=== PATIENT | male | born 1985 | race Caucasian/White ===

== ENCOUNTER 2018-08-19 18:41 | Emergency (ER) | payer SELFPAY ==
[~2018-08-19] VITALS: Ht 167.6 cm; Wt 100.0 kg
[2018-08-20 02:12] LABS: AMPHET/METH SCREEN,URINE POSITIVE (NEGATIVE); BARBITURATE SCREEN, URINE NEGATIVE (NEGATIVE); BENZODIAZEPINES SCREEN,URINE NEGATIVE (NEGATIVE); CANNABINOID SCREEN,URINE NEGATIVE (NEGATIVE); COCAINE SCREEN,URINE NEGATIVE (NEGATIVE); METHADONE SCREEN, URINE NEGATIVE (NEGATIVE); OPIATE SCREEN,URINE POSITIVE (NEGATIVE)
[2018-08-20 02:13] LABS: PHENCYCLIDINE SCREEN,URINE NEGATIVE (NEGATIVE)
[2018-08-20 03:05] VITALS: BP 117/76
== END 2018-08-20 03:07 | disposition home or self-care (01) ==
LOC: EMS 18:42
DX: F15.10 Other stimulant abuse, uncomplicated (principal); F11.10 Opioid abuse, uncomplicated; F17.210 Nicotine dependence, cigarettes, uncomplicated; Z88.0 Allergy status to penicillin
CPT/HCPCS: 36415; 80307; 99284; G0480; 51701

== ENCOUNTER 2022-11-05 23:52 | Inpatient (IN) | payer MEDICAID, OTHER ==
[~2022-11-05] VITALS: Ht 182.9 cm; Wt 104.5 kg
[2022-11-06] MEDS ORDERED: CLINDAMYCIN HCL 150 MG CAPSULE PO ONE (01:45)
[2022-11-06] MEDS ORDERED: HYDROCODONE/ACETAMINOPHEN 5-325 MG TABLET PO ONE (02:15)
[2022-11-06 03:18] LABS: BASOPHILS % (AUTO) 0.8 % (0.0-2.0); EOSINOPHILS % (AUTO) 2.3 % (1.0-6.0); HEMATOCRIT 42.2 % (41-53); HEMOGLOBIN 14.3 g/dL (13.5-17.5); LYMPHOCYTES # (AUTO) 2.5 K/uL (1.0-4.8); LYMPHOCYTES % (AUTO) 25.1 % (22.0-44.0); MEAN CORPUSCULAR HEMOGLOBIN 30.3 pg (26.0-34.0); MEAN CORPUSCULAR HGB CONC 33.9 G/dL (31.0-37.0); MEAN CORPUSCULAR VOLUME 90 fL (80-100); MONOCYTES # (AUTO) 1.1 K/uL (0.1-1.0); MONOCYTES % (AUTO) 10.8 % (2.0-9.0); PLATELET COUNT (AUTO) 248 K/uL (150-450); RED BLOOD CELL COUNT(AUTO) 4.72 MIL/uL (4.50-5.90); RED CELL DISTRIBUTION WIDTH 13.6 % (11.5-14.5)
[2022-11-06 03:19] LABS: ANION GAP 6 mmol/L (8-16); CARBON DIOXIDE 28 mmol/L (22-29); CHLORIDE 103 mmol/L (98-107); CREATININE 1.02 mg/dL (0.60-1.30); GLOMERULAR FILTR. RATE CALC > 60 mL/min (>60); GLUCOSE,RANDOM 87 mg/dL (70-110); POTASSIUM 4.5 mmol/L (3.5-5.1); SODIUM SERUM 137 mmol/L (136-145); UREA NITROGEN, BLOOD 22 mg/dL (7-18)
[2022-11-06 03:25] LABS: ALANINE AMINOTRANSFERASE 68 U/L (12-78); ALBUMIN 4.3 g/dL (3.4-5.0); ALKALINE PHOSPHATASE 75 U/L (46-116); ASPARTATE AMINOTRANSFERASE 40 U/L (15-37); BILIRUBIN,TOTAL 0.3 mg/dL (0.1-1.0); TOTAL PROTEIN, SERUM 8.3 g/dL (6.4-8.2)
[2022-11-06] MEDS ORDERED: CLINDAMYCIN 600 MG/D5% WATER 50 ML IV ONE (05:15)
[2022-11-06] MEDS ORDERED: PERTUSS(ACELL),DIPH,TET VAC/PF 0.5 ML SYRINGE IM. ONE (07:30)
[2022-11-06] MEDS ORDERED: ONDANSETRON HCL 4 MG/2 ML VIAL IVP ONE (07:30)
[2022-11-06] MEDS ORDERED: HYDROmorphone HCL 2 MG/ML SYRINGE IVP ONE (07:30)
[2022-11-06] MEDS ORDERED: VANCOMYCIN HCL 1.5 GM in DEXTROSE 5%-WATER 250 ML IV ONE (07:30)
[2022-11-06] MEDS ORDERED: SODIUM CHLORIDE 0.9% 2,000 ML IV ONE (07:30)
[2022-11-06] MEDS ORDERED: LORazepam 2 MG/ML VIAL IVP ONE (08:00)
[2022-11-06] MEDS ORDERED: IOHEXOL 350 MG/ML 100 ML VIAL ONE (08:07)
[2022-11-06] MEDS ORDERED: SODIUM CHLORIDE 0.9% 100 ML ONE (08:08)
[2022-11-06] MEDS ORDERED: ONDANSETRON HCL 4 MG/2 ML VIAL IVP PRN (08:15)
[2022-11-06] MEDS ORDERED: MAGNESIUM HYDROXIDE SUSPENSION 30 ML UDCUP PO PRN (08:15)
[2022-11-06] MEDS ORDERED: MORPHINE SULFATE 2 MG/ML SYRINGE IVP PRN (08:15)
[2022-11-06] MEDS ORDERED: OxyCODONE HCL/ACETAMINOPHEN 5-325 MG TABLET PO PRN (08:15)
[2022-11-06] MEDS ORDERED: ACETAMINOPHEN 325 MG TABLET PO PRN (08:15)
[2022-11-06] MEDS: FAMOTIDINE 20 MG TABLET PO SCH (09:14)
[2022-11-06] MEDS: NICOTINE 21 MG/24 HOUR PATCH TD SCH (09:14)
[2022-11-06] MEDS: CLINDAMYCIN 600 MG/D5% WATER 50 ML IV SCH ×2 (12:29→20:05)
[2022-11-06] MEDS ORDERED: INFLUENZA VIRUS VACCINE QVS 2022-23 (6MO+)/PF 60 MCG/0.5 ML SYRINGE IM. ONE (15:00)
[2022-11-06 15:01] VITALS: BP 151/103
[2022-11-06] MEDS ORDERED: SODIUM CHLORIDE 0.9% 500 ML IV ONE (19:56)
[2022-11-06 20:07] VITALS: BP 134/86
[2022-11-06] MEDS ORDERED: HYDROmorphone HCL 2 MG/ML SYRINGE IVP PRN (20:15)
[2022-11-07 04:41] VITALS: BP 141/87
[2022-11-07] MEDS: CLINDAMYCIN 600 MG/D5% WATER 50 ML IV SCH ×2 (05:01→11:59)
[2022-11-07 07:59] VITALS: BP 125/89
[2022-11-07] MEDS: FAMOTIDINE 20 MG TABLET PO SCH (08:32)
[2022-11-07] MEDS: NICOTINE 21 MG/24 HOUR PATCH TD SCH (08:32)
[2022-11-07] MEDS ORDERED: CLIN300C58 PO (10:43)
[2022-11-07 11:48] LABS: BASOPHILS % (AUTO) 0.9 % (0.0-2.0); EOSINOPHILS % (AUTO) 3.3 % (1.0-6.0); HEMATOCRIT 40.8 % (41-53); HEMOGLOBIN 13.7 g/dL (13.5-17.5); LYMPHOCYTES # (AUTO) 1.6 K/uL (1.0-4.8); LYMPHOCYTES % (AUTO) 20.6 % (22.0-44.0); MEAN CORPUSCULAR HEMOGLOBIN 29.9 pg (26.0-34.0); MEAN CORPUSCULAR HGB CONC 33.6 G/dL (31.0-37.0); MEAN CORPUSCULAR VOLUME 89 fL (80-100); MONOCYTES # (AUTO) 0.7 K/uL (0.1-1.0); MONOCYTES % (AUTO) 9.6 % (2.0-9.0); NEUTROPHILS # (AUTO) 5.1 K/uL (1.8-7.7); NEUTROPHILS % (AUTO) 65.6 % (40.0-70.0); PLATELET COUNT (AUTO) 226 K/uL (150-450); RED BLOOD CELL COUNT(AUTO) 4.59 MIL/uL (4.50-5.90); RED CELL DISTRIBUTION WIDTH 13.1 % (11.5-14.5)
== END 2022-11-07 13:38 | disposition home or self-care (01) | DRG 351 ==
LOC: EMS 23:53 → AHU 11-06 09:03 → 6S 11-06 14:05
PROVIDERS: ADMIT Internal Medicine; ATTEND Internal Medicine
PROC: 3E0234Z Introduction of Serum, Toxoid and Vaccine into Muscle, Percutaneous Approach (ICD-10-PCS; principal; 2022-11-06)
DX: M65.9 Synovitis and tenosynovitis, unspecified (principal); E66.9 Obesity, unspecified; L03.114 Cellulitis of left upper limb; F17.210 Nicotine dependence, cigarettes, uncomplicated; Z88.0 Allergy status to penicillin; Z88.1 Allergy status to other antibiotic agents; Z23 Encounter for immunization; Z68.31 Body mass index [BMI] 31.0-31.9, adult
CPT/HCPCS: 73200; 80053; 85025; 87040; 87077; 87205; 90715; 99291; J1170; J2060; J2270; J2405; J3370; J3490; J7030; J7040; J7050; J7060; Q9967

== ENCOUNTER 2023-01-10 10:24 | Emergency (ER) | payer OTHER ==
[~2023-01-10] VITALS: Ht 180.3 cm; Wt 109.1 kg
[~2023-01-10 10:24] MED LIST: CLIN300C58 PO
[2023-01-10 13:44] LABS: COVID AG,FIA SOURCE NASOPHARYNGEAL
[2023-01-10 14:51] LABS: BASOPHILS % (AUTO) 1.2 % (0.0-2.0); EOSINOPHILS % (AUTO) 3.7 % (1.0-6.0); HEMATOCRIT 38.8 % (41-53); HEMOGLOBIN 12.9 g/dL (13.5-17.5); LYMPHOCYTES # (AUTO) 2.4 K/uL (1.0-4.8); LYMPHOCYTES % (AUTO) 33.1 % (22.0-44.0); MEAN CORPUSCULAR HEMOGLOBIN 30.1 pg (26.0-34.0); MEAN CORPUSCULAR HGB CONC 33.3 G/dL (31.0-37.0); MEAN CORPUSCULAR VOLUME 90 fL (80-100); MONOCYTES # (AUTO) 0.8 K/uL (0.1-1.0); MONOCYTES % (AUTO) 10.8 % (2.0-9.0); NEUTROPHILS # (AUTO) 3.8 K/uL (1.8-7.7); NEUTROPHILS % (AUTO) 51.2 % (40.0-70.0); PLATELET COUNT (AUTO) 265 K/uL (150-450); RED BLOOD CELL COUNT(AUTO) 4.29 MIL/uL (4.50-5.90); RED CELL DISTRIBUTION WIDTH 13.3 % (11.5-14.5)
[2023-01-10 14:57] LABS: ANION GAP 12 mmol/L (8-16); CALCIUM, TOTAL 9.3 mg/dL (8.8-10.5); CARBON DIOXIDE 26 mmol/L (22-29); CHLORIDE 104 mmol/L (98-107); CREATININE 0.88 mg/dL (0.60-1.30); D-DIMER 0.74 mg/L FEU (0.00-0.50); GLOMERULAR FILTR. RATE CALC > 60 mL/min (>60); GLUCOSE,RANDOM 116 mg/dL (70-110); INR 0.9 (0.9-1.1); PROTHROMBIN TIME 9.9 SEC (9.4-11.6); SODIUM SERUM 142 mmol/L (136-145); UREA NITROGEN, BLOOD 25 mg/dL (7-18)
[2023-01-10 15:02] LABS: ALANINE AMINOTRANSFERASE 61 U/L (12-78); ALBUMIN 3.5 g/dL (3.4-5.0); ALKALINE PHOSPHATASE 79 U/L (46-116); ASPARTATE AMINOTRANSFERASE 32 U/L (15-37); BILIRUBIN,TOTAL 0.2 mg/dL (0.1-1.0); LIPASE 97 U/L (73-393); TOTAL PROTEIN, SERUM 7.5 g/dL (6.4-8.2)
[2023-01-10] MEDS ORDERED: DOXY-354 PO (16:25)
[2023-01-10] MEDS ORDERED: CEPH-558 PO (16:25)
[2023-01-10] MEDS ORDERED: CefTRIAXone SODIUM 1 GM/VIAL IM ONE (16:30)
[2023-01-10] MEDS ORDERED: LIDOCAINE/PF 1% 2 ML VIAL IM ONE (16:30)
[2023-01-10] MEDS ORDERED: DOXYCYCLINE HYCLATE 100 MG TABLET PO ONE (16:30)
[2023-01-10 16:51] VITALS: BP 129/82
[2023-01-11 08:07] LABS: HEPATITIS C AB (EIA) Non Reactive (Non Reactive)
== END 2023-01-10 16:59 | disposition home or self-care (01) ==
LOC: EMS 10:28
DX: L03.116 Cellulitis of left lower limb (principal); L03.115 Cellulitis of right lower limb; L05.92 Pilonidal sinus without abscess; F17.210 Nicotine dependence, cigarettes, uncomplicated; Z88.5 Allergy status to narcotic agent; Z88.0 Allergy status to penicillin; Z88.8 Allergy status to other drugs, medicaments and biological substances; Z20.822 Contact with and (suspected) exposure to COVID-19
CPT/HCPCS: 99285; 93970; 87426; 80053; 83605; 83690; 85025; 85379; 85610; 87040; 36415; 80074; 96372; J0696; J3490